=== PATIENT | female | born 1960 | race Caucasian/White ===

== ENCOUNTER → 2018-02-12 | Outpatient (CLI) | payer BC ==
[~2018-02-12] MED LIST: AMOX500T PO; CHOL1TAB46 PO
[2018-02-12 12:35] LABS: BASO % 1.4 %; BASO ABS # 0.07 K/uL (0-0.2); EOS % 5.7 %; EOS ABS # 0.28 K/uL (0-0.5); HEMATOCRIT 40.3 % (37-47); HEMOGLOBIN 13.1 g/dL (12.0-16.0); IG# 0.02 K/uL (0.00-0.02); LYMPH % 39.5 %; LYMPH ABS # 1.94 K/uL (1.2-3.4); MEAN CELL VOLUME 89.8 fL (80-100); MEAN CORPUSCULAR HEMOGLOBIN 29.2 pg (25-34); MEAN CORPUSCULAR HGB CONC 32.5 g/dl (32-36); MEAN PLATELET VOLUME 9.5 fL (7.4-10.4); MONO % 7.1 %; MONO ABS # 0.35 K/uL (0.11-0.59); NEUT % 45.9 %; NEUT ABS # 2.25 K/uL (1.4-6.5); PLATELET COUNT 306 K/uL (130-400); RED CELL DISTRIBUTION WIDTH CV 13.3 % (11.5-14.5); RED CELL DISTRIBUTION WIDTH SD 43.7 fL (36.4-46.3); WHITE BLOOD COUNT 4.91 K/uL (4.8-10.8)
[2018-02-12 12:42] LABS: INR 0.9 (0.9-1.1); PTT PATIENT 25.5 SECONDS (21.0-31.0)
[2018-02-12 13:31] LABS: POTASSIUM 4.5 mmol/L (3.5-5.1)
== END | disposition home or self-care (01) ==
LOC: C.LABMFLN 08:21
DX: Z01.818 Encounter for other preprocedural examination (principal)

== ENCOUNTER → 2018-02-15 | Day surgery (SDC) | payer BC ==
[2018-02-04 12:03] VITALS: Ht 167.6 cm; Wt 100.0 kg
[~2018-02-15] VITALS: Ht 167.6 cm; Wt 100.0 kg
[~2018-02-15] MED LIST changes: +ATROPINE SULFATE 0.1 MG/ML 5ML SYR IV PRN; +CEFAZOLIN 2000MG IV PUSH 15 ML IV SCH; +DEXAMETHASONE SOD INJ 4 MG/ML VIAL ONE; +EpHEDrine SULFATE INJ 50 MG/ML AMP IV PRN; +EpINEphrine INJ 1MG/ML AMP 1 MG/ML AMP ONE; +FENTANYL CITRATE INJ 50 MCG/1 ML 2 ML VIAL IV PRN; +FENTANYL CITRATE INJ 50 MCG/1 ML 2 ML VIAL ONE; +GLYCOPYRROLATE INJ 0.2 MG/ML VIAL ONE; +HYDROCODONE/ACETAMIN 5/325MG TAB PO PRN; +LACTATED RINGER'S 1000ML 1,000 ML IV SCH; +LIDOCAINE 4% MPF SOAK 5 ML = 1 DOSE ONE; +LIDOCAINE HCL 2% 2 ML VIAL (20MG/ML) ONE; +LIDOCAINE/EPINEPHRINE 1% 20 ML VIAL ONE; +MIDAZOLAM HCL 1 MG/ML 2ML VIAL ONE; +NEOSTIGMINE METHYLSULFATE 5 MG/5 ML SYR ONE; +OFLOXACIN 0.3% OP SOLN 5 ML BTL ONE; +ONDANSETRON INJ 2 MG/ML 2 ML VIAL IV PRN; +ONDANSETRON INJ 2 MG/ML 2 ML VIAL ONE; +OXYMETAZOLINE HCL 0.05% NA SPR 15 ML BTL PRN; +OXYMETAZOLINE HCL 0.05% NA SPR 15 ML BTL SCH; +PROPOFOL IV EMULSION 10 MG/ML 20 ML VIAL ONE; +RANITIDINE HCL 25 MG/ML INJ ONE; +RANITIDINE HCL 50 MG/100 ML D5W IV STA; +ROCURONIUM BROMIDE 10 MG/ML 5 ML VIAL ONE
--- NOTE | 2018-02-15 09:38 | History and Physical: Surg Cnt ---
History & Physical Date Feb 15, 2018. Chief Complaint ETD, MIXED HEARING LOSS, CHRONIC SINUSITIS, SEPTAL DEVIATION, BILATERAL INFERIOR TURBINATE HYPERTROPHY History of Present Illness The patient is a 57 year old female with ETD, MIXED HEARING LOSS, CHRONIC SINUSITIS, SEPTAL DEVIATION, BILATERAL INFERIOR TURBINATE HYPERTROPHY WITH SYMPTOMS DESPITE MAXIMAL MEDICAL RX. Past Medical/Surgical History PMH: ABOVE PSH: S/P B FESS, TONSILLECTOMY, DEBORAH, CARPAL TUNNEL SURGERY, AND HYSTERECTOMY Additional History Hepatic Disease: No Endocrine Disorder: No Kidney Disease: No Hypertension: No Heart Disease: No Bleeding Tendencies: No Infectious Diseases: No Allergies Coded Allergies: Meperidine (Verified Allergy, Unknown, HEADACHE, 02/15/18) Home Medications Scheduled Amoxicillin & Pot Clavulanate (Augmentin 500MG), Unknown Dose PO BID Cholecalciferol (Vitamin D3), 1 TAB PO QAM Physical Examination Skin: warm/dry, no rash Eyes: normal inspection, EOMI, sclerae normal ENT: normal ENT inspection, pharynx normal, + pertinent finding (R>L TM RETRACTION, R DNS, B ITH) Head: normocephalic, atraumatic Neck: supple, no adenopathy, trachea midline Respiratory/Chest: lungs clear, normal breath sounds, no respiratory distress Cardiovascular: regular rate, rhythm, no edema, no murmur Neurologic/Psych: no motor/sensory deficits, alert, normal reflexes, oriented x 3 Diagnosis ETD, MIXED HEARING LOSS, CHRONIC SINUSITIS, SEPTAL DEVIATION, BILATERAL INFERIOR TURBINATE HYPERTROPHY Plan of Treatment BMT, IMAGE-GUIDED BILATERAL FESS/INFERIOR TURBINATE REDUCTION, SEPTOPLASTY
--- NOTE | 2018-02-15 12:33 | [facility] Operative Report ---
Operative Report Operative Date Feb 15, 2018. Pre-Operative Diagnosis Eustachian Tube Dysfunction, Mixed Hearing Loss, Chronic Sinusitis, Septal Deviation, Bilateral Inferior Turbinate Hypertrophy Post-Operative Diagnosis Same Procedure(s) Performed Revision Image Guided Bilateral Endoscopic Sinus Surgery, Septoplasty, Bilateral Inferior Turbinate Reduction, Bilateral Myringotomy And Tube Placement Surgeon Dr. Taylor Vp Project Surgeon(s) None Estimated Blood Loss 25 mL Findings 1. R>L TM RETRACTION 2. MILD TO MODERATE R DNS 3. MODERATE B ITH 4. SYNECHIAE WITHIN FRONTOETHMOIDAL RECESSES WITH MILD MUCOSAL THICKENING BILATERALLY 5. MILD B SPHENOID SINUS MUCOSAL THICKENING Specimens None Anesthesia Type General I attest to the content of the Intraoperative Record and any orders documented therein. Any exceptions are noted below.
--- NOTE | 2018-02-15 12:34 | Discharge Instructions ---
Discharge Instructions Date of Service Feb 15, 2018. Admission Reason for Admission: Chronic Sinusitis, Nasal Septal Deviation, Dysfunc Discharge Discharge Diagnosis / Problem: SAME Discharge Goals Goal(s): Therapeutic intervention Activity Recommendations Activity Limitations: as noted below LIGHT ACTIVITY AND NO NOSE BLOWING FOR 2 WEEKS; NO DRIVING WHILE ON NORCO . Current Hospital Diet Patient's current hospital diet: Discharge Diet Recommended Diet: Regular Diet Procedures Procedures Performed: Revision Image Guided Bilateral Endoscopic Sinus Surgery, Septoplasty, Bilateral Inferior Turbinate Reduction, Bilateral Myringotomy And Tube Placement Pending Studies Studies pending at discharge: no Medical Emergencies . Who to Call and When: Medical Emergencies: If at any time you feel your situation is an emergency, please call 911 immediately. . Non-Emergent Contact Non-Emergency issues call your: Surgeon . . "Provider Documentation" section prepared by Kian Taylor. .
--- NOTE | 2018-02-15 13:17 | OPERATIVE REPORT ---
DATE OF OPERATION: 02/15/2018 PREOPERATIVE DIAGNOSES: 1. Eustachian tube dysfunction. 2. Mixed hearing loss. 3. Chronic sinusitis. 4. Right septal deviation. 5. Bilateral inferior turbinate hypertrophy. POSTOPERATIVE DIAGNOSES: 1. Eustachian tube dysfunction. 2. Mixed hearing loss. 3. Chronic sinusitis. 4. Right septal deviation. 5. Bilateral inferior turbinate hypertrophy. PROCEDURES: Bilateral myringotomy and tube placement. i'mma fusion revision image-guided bilateral endoscopic sinus surgery consisting of: 1. Balloon sinuplasty assisted, bilateral frontal sinusotomies. 2. Revision bilateral complete ethmoidectomies. 3. Revision bilateral sphenoidotomies. 4. Septoplasty. 5. Bilateral inferior turbinate outfracture and turbinoplasty. SURGEON: Kian Taylor MD ANESTHESIA: General endotracheal. ESTIMATED BLOOD LOSS: 25 mL. FINDINGS: 1. Right greater than left tympanic membrane retraction with dry middle ear space bilaterally. 2. [id number] right septal deviation. 3. Moderate bilateral inferior turbinate hypertrophy. 4. Synechia within the bilateral frontal ethmoidal recesses with mild mucosal thickening involving the bilateral frontal and ethmoid sinuses. 5. Bilateral mild mucosal thickening involving the sphenoid sinuses. SPECIMENS: None. COMPLICATIONS: None. INDICATIONS FOR THE PROCEDURE: The patient is a 57-year-old female with a history of eustachian tube dysfunction which is unresponsive to maximal medical therapy. She was found on audiometric analysis to have a mild mixed hearing loss with a mild conductive component, worse on the right hand side. In addition, the patient has chronic sinusitis status post bilateral endoscopic sinus surgery in the past by another antenna specialist. Despite maximal medical therapy with systemic antibiotics, systemic steroids, and topical nasal steroids, the patient continued to have problems with chronic sinusitis. A posttreatment fusion CT scan of the sinuses shows that she is status post bilateral endoscopic sinus surgery in the past and she had widely patent maxillary antrostomies. She had blockage of the frontal ethmoidal recesses bilaterally, which is worse on the right hand side. She has right greater than left sphenoid sinus mucosal thickening. She also has [id number] right septal deviation and moderate bilateral inferior turbinate hypertrophy. She presents for the above-mentioned procedures on an outpatient elective basis. DESCRIPTION OF PROCEDURE: After informed consent had been obtained from the patient, the patient was wheeled to the operating room and placed on the operating room table in the supine position. Monitors were placed. After induction of general endotracheal anesthesia, the patient's head was gently turned to the left and a speculum was inserted into the right external auditory canal. A myringotomy knife was used to make a radial incision in the anterior inferior quadrant of the tympanic membrane and the middle ear space was found to be dry. A silicone Jose tympanostomy tube was then placed. Floxin drops were instilled into the middle ear space and a cotton ball was placed into the conchal bowl. The left side was then addressed in a similar fashion with similar intraoperative findings. The patient was then prepped in the usual fashion for image-guided bilateral sinus surgery. The Feastie headset was placed on the forehead and was registered, calibrated, and verified and used throughout the case, but especially the frontal and sphenoid sinus portions. Lidocaine and epinephrine pledgets were placed in the bilateral nasal cavities and pressure applied. The left-sided pledgets were removed. A freer elevator was used to medialize the left middle turbinate. The middle turbinate was quite large and seemed to be blocking a good portion of the left middle meatus. The left middle turbinate and lateral nasal wall were injected with 1% lidocaine with 1:100,000 epinephrine. Lidocaine and epinephrine pledget was then placed in the left middle meatus. The right side was then addressed in a similar fashion. On the left hand side, straight Lan-Cut forceps was used to remove the inferior aspect of the left middle turbinate to allow better access into the middle meatus and ethmoid cavity. The patient had a previous maxillary antrostomy which was widely patent. A revision complete ethmoidectomy was then performed using powered instrumentation removing some leftover ethmoid air cells and diseased mucosa that was polypoid. There was synechia within the ethmoid sinus and frontoethmoidal recess that was divided using powered instrumentation. Using image guided and the frontal sinus suction, the left frontal sinus was cannulated. The suction was removed and a #6 frontal sinus balloon was inserted and inflated to 12 atmospheres of pressure in 2 different locations to dilate the left frontal recess tract. Polypoid tissue was removed from the left frontal ethmoidal recess and a frontal sinusotomy was performed. Lidocaine and epinephrine pledget was then placed into the left ethmoid cavity and the right side was addressed. The right side was then addressed in a similar fashion with similar intraoperative findings. A transnasal approach to the sphenoid sinus ostium was then undertaken bilaterally. The sphenoid sinus was entered using image guidance and the medial and inferior henderson were enlarged using powered instrumentation. Of note, there was mild mucosal thickening within the bilateral sphenoid sinuses. Attention was then taken to the nasal septum. This was injected with 1% lidocaine with 1:100,000 epinephrine. After allowing adequate time for vasoconstriction, a #15 scalpel was used to make a left hemitransfixion incision through which a left-sided mucoperichondrial and mucoperiosteal flap. It was evident that the patient had prior septoplasty as there was some significant scarring and fibrosis. A #15 scalpel was then used to incise the quadrangular cartilage with care to preserve at least 1.5 cm dorsal and caudal strut and a lot of the patient's quadrangular cartilage had already been removed. However, there was some superior cartilage that was causing the deviation. This was removed using a Jared swivel knife. A Pedro Luis forceps was then used to remove posterior superior septal bone that was causing further deviation to the right hand side. After removal of this bone, the septum was found to be midline. The septal cavity was suctioned. The left hemitransfixion incision was closed with several simple interrupted 4-0 chromic sutures. A 4-0 plain gut suture on a Claudy needle was then used to perform a quilting stitch of the mucoperichondrial and mucoperiosteal flaps bilaterally to help prevent septal hematoma. A Ennis elevator was then used to infracture and subsequently outfracture the inferior turbinates bilaterally. These were injected with 1% lidocaine with 1:100,000 epinephrine. A 2.0 mm turbinate blade using powered instrumentation was then used to perform bilateral inferior turbinoplasties in a submucosal fashion. The sinonasal cavities were then suctioned. Merogel was placed in the bilateral ethmoid sinus and/middle meatus. An orogastric tube was placed and the stomach was suctioned free of air and stomach contents. This marked the end of the case. The patient tolerated the procedure well with no apparent complications. The patient was extubated and transferred to recovery room in stable condition. I attest to the content of the Intraoperative Record and any orders documented therein. Any exception s are noted below.
[2018-02-15 14:29] VITALS: BP 133/71; PULSE 73; TEMP 36.5; O2SAT 97
--- NOTE | 2018-02-15 15:31 | Anesthesia Progress Nt - [facility] ---
Anesthesia Post Op Note Date & Time Feb 15, 2018 at 15:20 Vital Signs Pain Intensity: 0 Vital Signs Past 12 Hours Date Time Temp Pulse Resp B/P (MAP) Pulse Ox O2 Delivery O2 Flow Rate FiO2 02/15/18 14:29 36.5 73 12 133/71 (91) 97 Room Air 02/15/18 14:20 69 15 126/69 98 02/15/18 14:20 68 15 02/15/18 14:15 64 13 134/63 100 02/15/18 14:15 59 13 02/15/18 14:13 36.4 64 18 126/69 99 Room Air 02/15/18 14:10 64 17 133/68 98 02/15/18 14:10 63 17 02/15/18 14:05 63 19 122/68 98 02/15/18 14:05 62 19 02/15/18 14:00 54 21 124/63 97 02/15/18 14:00 54 21 02/15/18 13:55 50 19 120/61 98 02/15/18 13:55 50 19 02/15/18 13:50 51 14 02/15/18 13:50 49 14 119/60 100 02/15/18 13:45 47 14 100 02/15/18 13:45 45 14 02/15/18 13:40 46 10 02/15/18 13:40 45 10 128/59 100 02/15/18 13:35 52 16 02/15/18 13:35 53 16 113/72 100 02/15/18 13:30 47 10 119/58 100 02/15/18 13:30 46 10 02/15/18 13:25 45 14 02/15/18 13:25 45 14 120/57 100 02/15/18 13:20 50 17 02/15/18 13:20 49 17 111/70 100 02/15/18 13:16 115/49 02/15/18 13:15 48 11 100 02/15/18 13:15 47 11 02/15/18 13:10 48 16 02/15/18 13:10 49 16 128/57 100 02/15/18 13:05 51 12 02/15/18 13:05 51 12 131/68 100 02/15/18 13:00 66 15 02/15/18 13:00 66 15 130/70 100 02/15/18 12:55 69 16 147/71 100 02/15/18 12:55 69 16 02/15/18 12:50 71 18 151/71 100 02/15/18 12:50 71 18 02/15/18 12:45 95 159/75 100 02/15/18 12:45 95 02/15/18 12:41 150/80 02/15/18 12:40 103 02/15/18 12:40 103 100 02/15/18 12:40 36.3 103 16 150/80 100 Humidified Oxygen 6 Mask 02/15/18 09:15 36.7 77 18 152/87 (108) 98 Room Air Notes Mental Status: alert / awake / arousable, participated in evaluation Pt Amnestic to Procedure: Yes Nausea / Vomiting: adequately controlled Pain: adequately controlled Airway Patency, RR, SpO2: stable & adequate BP & HR: stable & adequate Hydration State: stable & adequate Anesthetic Complications: no major complications apparent The patient is a 57 y/o female with a h/o allergy induced asthma, PVCs, GERD and anxiety s/p BMT revision ESS with Dr. Taylor. The patient was found to be a difficult intubation intraoperatively due to an anterior airway with a large floppy epiglottis. She was eventually intubated successfully with the Glidescope 3. All attempts at intubation were atraumatic. She was an easy mask ventilation. All vital signs were stable throughout the procedure. Please see OR record for details. The patient did well during the remainder of the procedure with no problems. In recovery, the patient complained of burning in the middle of her chest and over the left side of her chest. All vitals were stable and she was saturating 100% on room air. Her lungs were clear to auscultation bilaterally. An EKG was done and showed no ischemic changes. She was given Zantac 50mg IV. She stated that the burning was much improved in Phase II recovery. She did have a sore throat which I explained was likely from the intubation and endotracheal tube which I told her should improve over the next several days. The patient felt well on discharge. I did inform the patient that we had to use the Glidescope with several attempts to intubate her and that she should make any future anesthesia providers aware of this prior to surgery. She understands and agrees. I also instructed the patient to go to the ED with any chest pain, shortness of breath, lightheaded or dizziness or with any other concerns. She understands and agrees.
== END | disposition home or self-care (01) ==
LOC: X.SURG 08:40
DX: H69.90 Unspecified Eustachian tube disorder, unspecified ear (principal); H90.8 Mixed conductive and sensorineural hearing loss, unspecified; J32.9 Chronic sinusitis, unspecified; J34.2 Deviated nasal septum; J34.3 Hypertrophy of nasal turbinates; Z88.8 Allergy status to other drugs, medicaments and biological substances